=== PATIENT | female | born 1995 | race Caucasian/White ===

== ENCOUNTER 2018-04-06 22:06 | Emergency (ER) | payer MEDICAID, OTHER ==
[~2018-04-06] VITALS: Ht 162.6 cm; Wt 86.2 kg
[~2018-04-06 22:06] MED LIST: HYDR-971 PO; ONDA4TAB10 PO
[2018-04-06 22:55] VITALS: BP 129/75
[2018-04-06] MEDS ORDERED: KETOROLAC 30 MG/ML VIAL. ONE (22:57)
[2018-04-06] MEDS ORDERED: KETOROLAC 30 MG/ML VIAL. IM ONE (23:00)
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
== END 2018-04-06 23:03 | disposition home or self-care (01) ==
LOC: ER 22:06
DX: M25.511 Pain in right shoulder (principal); M54.6 Pain in thoracic spine; J45.909 Unspecified asthma, uncomplicated; Z91.040 Latex allergy status; V49.9XXA Car occupant (driver) (passenger) injured in unspecified traffic accident, initial encounter; Y93.89 Activity, other specified; Y99.8 Other external cause status; Y92.488 Other paved roadways as the place of occurrence of the external cause
CPT/HCPCS: 71045; 73030; 81025; 96372; 99284; J1885

== ENCOUNTER 2018-08-16 20:40 | Emergency (ER) | payer OTHER ==
[~2018-08-16] VITALS: Ht 160 cm; Wt 81.2 kg
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
[2018-08-16] MEDS ORDERED: KETOROLAC 60 MG/2 ML VIAL. IM ONE (21:30)
[2018-08-16] MEDS ORDERED: CYCL-331 PO (21:41)
[2018-08-16] MEDS ORDERED: ACET-704 PO (21:41)
[2018-08-16] MEDS ORDERED: MELO15TA6 PO (21:41)
[2018-08-16 22:40] VITALS: BP 128/81
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
== END 2018-08-16 22:40 | disposition home or self-care (01) ==
LOC: ER 20:40
DX: S40.011A Contusion of right shoulder, initial encounter (principal); M25.551 Pain in right hip; V49.59XA Passenger injured in collision with other motor vehicles in traffic accident, initial encounter; Y93.89 Activity, other specified; Y92.488 Other paved roadways as the place of occurrence of the external cause; Y99.8 Other external cause status
CPT/HCPCS: 71045; 72170; 73030; 96372; 99284; J1885

== ENCOUNTER 2019-02-26 17:52 | Emergency (ER) | payer OTHER ==
[~2019-02-26] VITALS: Ht 157.5 cm; Wt 79.4 kg
[~2019-02-26 17:52] MED LIST changes: +ACET-704 PO; +CYCL-331 PO; +HYDR-3165 PO; -HYDR-971 PO; +MELO15TA6 PO
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
[2019-02-26 18:22] VITALS: BP 136/73
[2019-02-26 18:38] LABS: BACTERIA,URINE FEW /HPF (0-FEW); BILIRUBIN,URINE NEG (NEG); CLARITY,URINE HAZY; COLOR,URINE YELLOW; GLUCOSE,URINE NEG (NEG); NITRITE,URINE NEG (NEG); SQUAMOUS EPITHELIAL CELL,UR MANY /LPF; UROBILINOGEN,URINE 0.2 mg/dL (0.2 mg/dL)
[2019-02-26] MEDS ORDERED: ORPH-16 PO (19:01)
[2019-02-26] MEDS ORDERED: DICL50TA4 PO (19:01)
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
== END 2019-02-26 19:05 | disposition home or self-care (01) ==
LOC: ER 17:52
DX: S13.4XXA Sprain of ligaments of cervical spine, initial encounter (principal); S50.12XA Contusion of left forearm, initial encounter; M25.572 Pain in left ankle and joints of left foot; R10.30 Lower abdominal pain, unspecified; F41.9 Anxiety disorder, unspecified; J45.909 Unspecified asthma, uncomplicated; Z91.040 Latex allergy status; V89.2XXA Person injured in unspecified motor-vehicle accident, traffic, initial encounter; Y93.89 Activity, other specified; Y92.488 Other paved roadways as the place of occurrence of the external cause; Y99.8 Other external cause status
CPT/HCPCS: 72170; 73090; 81001; 81025; 87086; 99285-25

== ENCOUNTER 2019-03-01 14:35 | Emergency (ER) | payer OTHER ==
[~2019-03-01] VITALS: Ht 157.5 cm; Wt 79.4 kg
[~2019-03-01 14:35] MED LIST changes: +DICL50TA4 PO; +ORPH-16 PO
[2019-03-01] MEDS ORDERED: IV NORMAL SALINE 1,000ML 1,000 ML IV SCH (14:50)
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
[2019-03-01] MEDS ORDERED: KETOROLAC 30 MG/ML VIAL. IV ONE (15:00)
[2019-03-01] MEDS ORDERED: IOHEXOL 300 MG/ML 75 ML VIAL. IV ONE (15:00)
[2019-03-01] MEDS ORDERED: METOCLOPRAMIDE HCL 10 MG/2 ML VIAL. IV ONE (15:00)
[2019-03-01] MEDS ORDERED: diphenhydrAMINE 50 MG/ML VIAL ONE (15:26)
[2019-03-01 15:30] LABS: BASO % 0 % (0-3); EOS # 0.1 x10^3/uL (0.0-0.7); EOS % 1 % (0-3); HEMATOCRIT 38.9 % (36.0-47.0); LYMPH # 3.4 x10^3/uL (1.0-4.8); LYMPH % 50 % (24-48); MEAN CORPUSCULAR HEMOGLOBIN 29 pg (25-35); MEAN CORPUSCULAR HGB CONC 33 g/dL (31-37); MEAN CORPUSCULAR VOLUME 87 fL (79-100); MONO # 0.4 x10^3/uL (0.0-1.1); MONO % 6 % (0-9); NEUT # 2.8 x10^3uL (1.8-7.7); NEUT % 42 % (31-73); PLATELET COUNT 294 x10^3/uL (140-400); RED BLOOD COUNT 4.49 x10^6/uL (3.50-5.40); RED CELL DISTRIBUTION WIDTH 13.5 % (11.5-14.5); WHITE BLOOD COUNT 6.7 x10^3/uL (4.0-11.0)
[2019-03-01] MEDS ORDERED: diphenhydrAMINE 50 MG/ML VIAL IVP ONE (15:30)
[2019-03-01 15:47] LABS: PREG TEST PT QUAL NEGATIVE (NEG)
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
[2019-03-01 15:52] LABS: ALBUMIN 3.5 g/dL (3.4-5.0); ALBUMIN/GLOBULIN RATIO 0.9 (1.0-1.7); CALCIUM 9.5 mg/dL (8.5-10.1); CREATININE 0.7 mg/dL (0.6-1.0); GFR 105.6; POTASSIUM 4.2 mmol/L (3.5-5.1); TOTAL BILIRUBIN 0.4 mg/dL (0.2-1.0); TOTAL PROTEIN 7.6 g/dL (6.4-8.2)
[2019-03-01 16:22] LABS: BACTERIA,URINE 0 /HPF (0-FEW); BILIRUBIN,URINE NEG (NEG); CLARITY,URINE CLEAR; COLOR,URINE YELLOW; GLUCOSE,URINE NEG (NEG); NITRITE,URINE NEG (NEG); RBC,URINE 0 /HPF (0-2); SQUAMOUS EPITHELIAL CELL,UR OCC /LPF; UROBILINOGEN,URINE 0.2 mg/dL (0.2 mg/dL); WBC,URINE 0 /HPF (0-4)
[2019-03-01] MEDS ORDERED: TRAM50TA PO (16:47)
[2019-03-01] MEDS ORDERED: ONDA4TAB7 PO (16:47)
[2019-03-01] MEDS ORDERED: MELO7.5T29 PO (16:47)
[2019-03-01 16:52] VITALS: BP 109/57
== END 2019-03-01 16:55 | disposition home or self-care (01) ==
LOC: ER 14:35
DX: R10.30 Lower abdominal pain, unspecified (principal); R11.2 Nausea with vomiting, unspecified; F41.9 Anxiety disorder, unspecified; J45.909 Unspecified asthma, uncomplicated; K76.0 Fatty (change of) liver, not elsewhere classified; Z91.040 Latex allergy status; Z88.1 Allergy status to other antibiotic agents; V49.9XXD Car occupant (driver) (passenger) injured in unspecified traffic accident, subsequent encounter
CPT/HCPCS: 36415; 74177; 80053; 81001; 83690; 84703; 85025; 96361; 96374; 96375; 99285; J1200; J1885; J2765; Q9967; J7030